=== PATIENT | male | born 1970 | race Caucasian/White ===

== ENCOUNTER 2016-11-08 19:29 | Emergency (ER) | payer BC | END 2016-11-08 20:15 | disposition home or self-care (01) | LOC: ER 19:29 | DX: J20.9 Acute bronchitis, unspecified (principal); F32.9 Major depressive disorder, single episode, unspecified; F17.200 Nicotine dependence, unspecified, uncomplicated ==

== ENCOUNTER 2016-11-30 07:33 | Emergency (ER) | payer BC | END 2016-11-30 08:36 | disposition home or self-care (01) | LOC: ER 07:33 | DX: J40 Bronchitis, not specified as acute or chronic (principal); F32.9 Major depressive disorder, single episode, unspecified ==